=== PATIENT | female | born 1985 | race Caucasian/White ===

== ENCOUNTER 2016-10-31 11:06 | Inpatient (IN) | payer BC, OTHER ==
[~2016-10-31] VITALS: Ht 167.6 cm; Wt 70.8 kg
[2016-10-31] MEDS ORDERED: HYDROMORPHONE 1 MG/1 ML DISP.SYRIN ONE (12:57)
[2016-10-31] MEDS ORDERED: IV SET PRIMARY 1 EA INFUS.SET MC ONE (12:57)
[2016-10-31] MEDS ORDERED: ONDANSETRON HCL/PF 4 MG/2 ML VIAL ONE ×2 (12:57→13:37)
[2016-10-31] MEDS ORDERED: IV NS 0.9% 1,000 ML ONE (12:57)
[2016-10-31] MEDS ORDERED: IV NS 0.9% 1,000 ML BAG IV ONE (13:00)
[2016-10-31] MEDS ORDERED: HYDROMORPHONE INJ 2 MG/ML DISP.SYRIN IV ONE (13:00)
[2016-10-31] MEDS ORDERED: ONDANSETRON HCL/PF 4 MG/2 ML VIAL IVP ONE ×2 (13:00→14:00)
[2016-10-31 13:03] LABS: PREGNANCY TEST URINE QUAL NEGATIVE (NEGATIVE)
[2016-10-31 13:04] LABS: KETONES,URINE Negative (NEGATIVE); LEUKOCYTE ESTERASE ,URINE Trace (NEGATIVE)
[2016-10-31 13:12] LABS: ADD UA MICROSCOPIC YES
[2016-10-31 13:14] LABS: ADD URINE CULTURE YES; RBC,URINE 0-2 /HPF (0-2); WBC,URINE 0-2 /HPF (0-3)
[2016-10-31 13:43] LABS: BASOPHILS # (AUTO) 0.3 /CMM (0.0-0.2); BASOPHILS % (AUTO) 2.9 % (0.0-2.0); DIFF TOTAL % 100 %; EOSINOPHILS # (AUTO) 0.1 /CMM (0.0-0.7); HEMATOCRIT 45 % (33-45); HEMOGLOBIN 15.1 g/dL (11.5-14.8); LYMPHOCYTES # (AUTO) 2.3 /CMM (0.8-4.8); LYMPHOCYTES % (AUTO) 22.6 % (20.0-44.0); MEAN CORPUSCULAR HEMOGLOBIN 28 PG (26.0-33.0); MEAN CORPUSCULAR HGB CONC 33 g/dl (31.0-36.0); MEAN CORPUSCULAR VOLUME 85 fL (82-100); MONOCYTES # (AUTO) 0.5 /CMM (0.1-1.30); MONOCYTES % (AUTO) 4.7 % (2.0-12.0); NEUTROPHILS # (AUTO) 6.9 /CMM (1.8-8.9); NEUTROPHILS % (AUTO) 68.8 % (43.0-81.0); PLATELET COUNT (AUTO) 178 /CMM (150-450); RED BLOOD CELL COUNT(AUTO) 5.36 MIL/uL (4.0-5.2); WHITE BLOOD COUNT (AUTO) 10.1 K/uL (4.3-11.0)
[2016-10-31 13:57] LABS: CALCIUM, SERUM 9.4 mg/dL (8.5-10.1); CREATININE 0.9 mg/dL (0.6-1.3)
[2016-10-31] MEDS ORDERED: methylPREDNISolone SOD SUCC 125 MG/2ML VIAL IV ONE (14:00)
[2016-10-31 14:05] LABS: BILIRUBIN,DIRECT 0.1 mg/dL (0.0-0.2); BILIRUBIN,TOTAL 0.3 mg/dL (0.2-1.0); INDIRECT BILIRUBIN 0.2 mg/dL (0.0-1.1)
[2016-10-31] MEDS ORDERED: methylPREDNISolone SOD SUCC 125 MG/2ML VIAL ONE (14:25)
[2016-10-31] MEDS ORDERED: GABA600T PO (14:43)
[2016-10-31] MEDS ORDERED: QUET200T PO (14:43)
[2016-10-31] MEDS ORDERED: LORA1TAB82 PO (14:43)
[2016-10-31] MEDS ORDERED: QUET25TA PO (14:43)
[2016-10-31] MEDS ORDERED: CLON0.1T PO (14:43)
[2016-10-31] MEDS ORDERED: PRAZ2CAP2 PO (15:37)
[2016-10-31] MEDS ORDERED: FLUOXETINE PO (15:38)
[2016-10-31 16:45] VITALS: BP 116/88
[2016-10-31 17:00] VITALS: BP 123/78
[2016-10-31] MEDS ORDERED: HYDROCODONE/APAP 5/325MG 1 EACH TABLET PO PRN (18:00)
[2016-10-31] MEDS ORDERED: MAGNESIUM HYDROXIDE 30 ML UDC PO PRN (18:00)
[2016-10-31] MEDS ORDERED: Z GUARD REMEDY 2 OZ OINT TP PRN (18:00)
[2016-10-31] MEDS ORDERED: ACETAMINOPHEN 325 MG TABLET PO PRN (18:00)
[2016-10-31] MEDS ORDERED: MAG HYDROX/AL HYDROX/SIMETH 30 ML UDC PO PRN (18:00)
[2016-10-31] MEDS: methylPREDNISolone SOD SUCC 40 MG/ML VIAL IV SCH (18:35)
[2016-10-31] MEDS: MORPHINE SULFATE INJ 2 MG/ML DISP.SYRIN IV PRN (18:36)
[2016-10-31] MEDS: IV D5/0.45 NACL 1,000 ML IV PRN (18:48)
[2016-10-31 20:00] VITALS: BP 108/71
[2016-10-31] MEDS: FLUOXETINE HCL 20 MG CAPSULE PO SCH (21:30)
[2016-10-31] MEDS: QUETIAPINE FUMARATE 25 MG TABLET PO SCH (21:30)
[2016-10-31] MEDS: GABAPENTIN 300 MG CAPSULE PO SCH (21:30)
[2016-10-31] MEDS: METRONIDAZOLE 500MG/ NS 100ML 500 MG in PREMIX 1 EA IV SCH (21:38)
[2016-10-31] MEDS ORDERED: SECONDARY IV SET 1 EA INFUS.SET MC ONE (22:12)
[2016-10-31] MEDS: ZOLPIDEM TARTRATE 5 MG TABLET PO PRN (22:54)
[2016-11-01] MEDS: MORPHINE SULFATE INJ 2 MG/ML DISP.SYRIN IV PRN ×5 (02:09→20:09)
[2016-11-01] MEDS: HYDROCODONE/APAP 10/325MG 1 EA TABLET PO PRN ×5 (03:01→22:07)
[2016-11-01] MEDS: METRONIDAZOLE 500MG/ NS 100ML 500 MG in PREMIX 1 EA IV SCH ×4 (04:14→17:10)
[2016-11-01] MEDS: GABAPENTIN 300 MG CAPSULE PO SCH ×4 (08:29→21:44)
[2016-11-01] MEDS: QUETIAPINE FUMARATE 25 MG TABLET PO SCH ×4 (08:29→21:44)
[2016-11-01] MEDS: LORAZEPAM 1 MG TABLET PO SCH ×3 (08:30→17:04)
[2016-11-01] MEDS: methylPREDNISolone SOD SUCC 40 MG/ML VIAL IV SCH ×3 (08:30→17:03)
[2016-11-01] MEDS ORDERED: methylPREDNISolone SOD SUCC 40 MG/ML VIAL IV SCH (09:00)
[2016-11-01] MEDS ORDERED: PANTOPRAZOLE 40 MG VIAL IV SCH (09:00)
[2016-11-01] MEDS ORDERED: LORAZEPAM INJ 2 MG/ML VIAL IV ONE (12:00)
[2016-11-01 13:11] LABS: BASOPHILS % (AUTO) 0.1 % (0.0-2.0); DIFF TOTAL % 100 %; EOSINOPHILS % (AUTO) 0.1 % (0.0-6.0); HEMATOCRIT 38 % (33-45); HEMOGLOBIN 12.7 g/dL (11.5-14.8); MEAN CORPUSCULAR HEMOGLOBIN 29 PG (26.0-33.0); MEAN CORPUSCULAR HGB CONC 33 g/dl (31.0-36.0); MEAN CORPUSCULAR VOLUME 86 fL (82-100); MONOCYTES # (AUTO) 0.1 /CMM (0.1-1.30); MONOCYTES % (AUTO) 0.5 % (2.0-12.0); NEUTROPHILS # (AUTO) 9.9 /CMM (1.8-8.9); NEUTROPHILS % (AUTO) 90.3 % (43.0-81.0); PLATELET COUNT (AUTO) 163 /CMM (150-450); RED BLOOD CELL COUNT(AUTO) 4.45 MIL/uL (4.0-5.2)
[2016-11-01 13:21] LABS: CALCIUM, SERUM 8.5 mg/dL (8.5-10.1); CREATININE 0.9 mg/dL (0.6-1.3); PHOSPHORUS 2.4 mg/dL (2.5-4.9)
[2016-11-01 13:35] LABS: THYROID STIMULATING HORMONE 0.422 uIU/mL (0.358-3.74)
[2016-11-01] MEDS: IV D5/0.45 NACL 1,000 ML IV PRN (14:43)
[2016-11-01] MEDS ORDERED: K PHOS NEUTRAL 250 MG TABLET PO ONE (16:00)
[2016-11-01] MEDS: ONDANSETRON HCL/PF 4 MG/2 ML VIAL IVP PRN (17:07)
[2016-11-01] MEDS ORDERED: PEG 3350/NA SULF,BICARB,CL/KCL 4,000 ML BOTTLE PO ONE (18:00)
[2016-11-01 20:52] VITALS: BP 131/89
[2016-11-01] MEDS: FLUOXETINE HCL 20 MG CAPSULE PO SCH (21:44)
[2016-11-01] MEDS: ZOLPIDEM TARTRATE 5 MG TABLET PO PRN (23:15)
[2016-11-02] MEDS: IV D5/0.45 NACL 1,000 ML IV PRN
[2016-11-02] MEDS: MORPHINE SULFATE INJ 2 MG/ML DISP.SYRIN IV PRN ×4 (03:14→11:53)
[2016-11-02] MEDS: METRONIDAZOLE 500MG/ NS 100ML 500 MG in PREMIX 1 EA IV SCH ×3 (05:12)
[2016-11-02 07:56] LABS: BASOPHILS # (AUTO) 0.1 /CMM (0.0-0.2); BASOPHILS % (AUTO) 0.9 % (0.0-2.0); DIFF TOTAL % 100 %; EOSINOPHILS # (AUTO) 0.1 /CMM (0.0-0.7); EOSINOPHILS % (AUTO) 0.5 % (0.0-6.0); HEMATOCRIT 38 % (33-45); HEMOGLOBIN 12.4 g/dL (11.5-14.8); LYMPHOCYTES # (AUTO) 3.4 /CMM (0.8-4.8); LYMPHOCYTES % (AUTO) 26.7 % (20.0-44.0); MEAN CORPUSCULAR HEMOGLOBIN 29 PG (26.0-33.0); MEAN CORPUSCULAR HGB CONC 33 g/dl (31.0-36.0); MEAN CORPUSCULAR VOLUME 86 fL (82-100); MONOCYTES # (AUTO) 0.7 /CMM (0.1-1.30); MONOCYTES % (AUTO) 5.4 % (2.0-12.0); NEUTROPHILS # (AUTO) 8.5 /CMM (1.8-8.9); NEUTROPHILS % (AUTO) 66.5 % (43.0-81.0); PLATELET COUNT (AUTO) 177 /CMM (150-450); RED BLOOD CELL COUNT(AUTO) 4.34 MIL/uL (4.0-5.2); WHITE BLOOD COUNT (AUTO) 12.8 K/uL (4.3-11.0)
[2016-11-02 08:00] VITALS: BP 126/88
[2016-11-02 08:36] LABS: ALBUMIN 3.6 g/dL (3.4-5.0); BILIRUBIN,TOTAL 0.2 mg/dL (0.2-1.0); CALCIUM, SERUM 8.3 mg/dL (8.5-10.1); CREATININE 0.8 mg/dL (0.6-1.3); PHOSPHORUS 2.8 mg/dL (2.5-4.9); POTASSIUM 3.4 mmol/L (3.5-5.1); TOTAL PROTEIN, SERUM 5.9 g/dL (6.4-8.2)
[2016-11-02] MEDS: GABAPENTIN 300 MG CAPSULE PO SCH ×2 (08:38→11:24)
[2016-11-02] MEDS: LORAZEPAM 1 MG TABLET PO SCH ×2 (08:38→11:25)
[2016-11-02] MEDS: QUETIAPINE FUMARATE 25 MG TABLET PO SCH ×2 (08:38→11:25)
[2016-11-02] MEDS: methylPREDNISolone SOD SUCC 40 MG/ML VIAL IV SCH (09:17)
[2016-11-02] MEDS: ONDANSETRON HCL/PF 4 MG/2 ML VIAL IVP PRN ×2 (09:53→16:43)
[2016-11-02] MEDS ORDERED: POTASSIUM CHLORIDE 20 MEQ TAB.PRT.SR PO SCH (10:30)
[2016-11-02] MEDS ORDERED: SECONDARY IV SET 1 EA INFUS.SET MC ONE (11:15)
[2016-11-02] MEDS: Magnesium 1GM/D5W 100ML PREMIX 100 ML IV SCH ×2 (11:24→12:07)
[2016-11-02] MEDS: HYDROCODONE/APAP 10/325MG 1 EA TABLET PO PRN (15:11)
[2016-11-02 16:00] VITALS: BP 120/81
[2016-11-02] MEDS ORDERED: HYDROCORTISONE 100 MG/60 ML ENEMA RC SCH (22:00)
== END 2016-11-02 16:45 | disposition home or self-care (01) | DRG 394 ==
LOC: ER 11:08 → MEDSG2 16:33
PROVIDERS: ADMIT Internal Medicine; ATTEND Internal Medicine
PROC: 05H533Z Insertion of Infusion Device into Right Subclavian Vein, Percutaneous Approach (ICD-10-PCS; 2016-11-01)
PROC: 0DBP8ZX Excision of Rectum, Via Natural or Artificial Opening Endoscopic, Diagnostic (ICD-10-PCS; principal; 2016-11-02 10:27)
DX: K62.89 Other specified diseases of anus and rectum (principal); E87.0 Hyperosmolality and hypernatremia; F32.9 Major depressive disorder, single episode, unspecified; F41.9 Anxiety disorder, unspecified; K58.9 Irritable bowel syndrome, unspecified; M19.90 Unspecified osteoarthritis, unspecified site; Z87.442 Personal history of urinary calculi; Z90.49 Acquired absence of other specified parts of digestive tract
CPT/HCPCS: 36415; 80048-TC; 80053-TC; 80061-TC; 80076-TC; 81000-TC; 83690-TC; 83735-TC; 84100-TC; 84443-TC; 84703-TC; 85025-TC; 87086-TC; 88305-TC; A4216; A4606; C9113; J1170; J2060; J2270; J2405; J2920; J2930; J3475; J3490; J7030; Z7610

== ENCOUNTER 2016-11-24 10:03 | Emergency (ER) | payer BC ==
[~2016-11-24] VITALS: Ht 162.6 cm; Wt 63.5 kg
[~2016-11-24 10:03] MED LIST: CLON0.1T PO; FLUOXETINE PO; GABA600T PO; LORA1TAB82 PO; PRAZ2CAP2 PO; QUET200T PO; QUET25TA PO
[2016-11-24 10:09] VITALS: BP 126/71
[2016-11-24] MEDS ORDERED: LIDOCAINE 1%-EPI 1:100,000 20 ML VIAL TP ONE (10:30)
== END 2016-11-24 11:41 | disposition home or self-care (01) ==
LOC: ER 10:05
DX: L02.411 Cutaneous abscess of right axilla (principal); F19.10 Other psychoactive substance abuse, uncomplicated; F17.210 Nicotine dependence, cigarettes, uncomplicated; Z88.8 Allergy status to other drugs, medicaments and biological substances
CPT/HCPCS: 10060; 99283; A4606; Z7610

== ENCOUNTER 2016-11-26 16:52 | Emergency (ER) | payer BC ==
[~2016-11-26] VITALS: Ht 165.1 cm; Wt 63.5 kg
[2016-11-26] MEDS ORDERED: ONDANSETRON HCL/PF 4 MG/2 ML VIAL IV ONE (17:30)
[2016-11-26] MEDS ORDERED: IV NS 0.9% 1,000 ML BAG IV ONE ×2 (17:30)
[2016-11-26] MEDS ORDERED: MORPHINE SULFATE INJ 2 MG/ML DISP.SYRIN IV ONE (17:30)
[2016-11-26] MEDS ORDERED: IV NS 0.9% 2,000 ML ONE (17:37)
[2016-11-26] MEDS ORDERED: ONDANSETRON HCL/PF 4 MG/2 ML VIAL ONE (17:37)
[2016-11-26] MEDS ORDERED: MORPHINE SULFATE INJ 4 MG/ML DISP.SYRIN ONE (17:37)
[2016-11-26] MEDS ORDERED: IV SET PRIMARY 1 EA INFUS.SET MC ONE (17:37)
[2016-11-26 17:57] LABS: BASOPHILS # (AUTO) 0.3 /CMM (0.0-0.2); BASOPHILS % (AUTO) 2.3 % (0.0-2.0); DIFF TOTAL % 100 %; EOSINOPHILS % (AUTO) 0.4 % (0.0-6.0); HEMATOCRIT 42 % (33-45); HEMOGLOBIN 13.9 g/dL (11.5-14.8); LYMPHOCYTES # (AUTO) 1.4 /CMM (0.8-4.8); LYMPHOCYTES % (AUTO) 11.8 % (20.0-44.0); MEAN CORPUSCULAR HEMOGLOBIN 29 PG (26.0-33.0); MEAN CORPUSCULAR HGB CONC 33 g/dl (31.0-36.0); MEAN CORPUSCULAR VOLUME 86 fL (82-100); MONOCYTES # (AUTO) 0.8 /CMM (0.1-1.30); MONOCYTES % (AUTO) 6.5 % (2.0-12.0); NEUTROPHILS # (AUTO) 9.2 /CMM (1.8-8.9); PLATELET COUNT (AUTO) 196 /CMM (150-450); RED BLOOD CELL COUNT(AUTO) 4.85 MIL/uL (4.0-5.2); WHITE BLOOD COUNT (AUTO) 11.7 K/uL (4.3-11.0)
[2016-11-26 19:00] LABS: CALCIUM, SERUM 8.4 mg/dL (8.5-10.1); CREATININE 1.3 mg/dL (0.6-1.3); POTASSIUM 3.2 mmol/L (3.5-5.1)
[2016-11-26] MEDS ORDERED: diphenhydrAMINE HCL 25 MG CAPSULE ONE (19:05)
[2016-11-26 19:06] LABS: ALBUMIN 3.6 g/dL (3.4-5.0); BILIRUBIN,DIRECT 0.1 mg/dL (0.0-0.2); BILIRUBIN,TOTAL 0.4 mg/dL (0.2-1.0); INDIRECT BILIRUBIN 0.3 mg/dL (0.0-1.1); TOTAL PROTEIN, SERUM 6.4 g/dL (6.4-8.2)
[2016-11-26 19:13] LABS: KETONES,URINE 15 (NEGATIVE); LEUKOCYTE ESTERASE ,URINE Small (NEGATIVE)
[2016-11-26 19:14] LABS: ADD UA MICROSCOPIC YES
[2016-11-26 19:17] LABS: ADD URINE CULTURE YES; RBC,URINE 21-50 /HPF (0-2); WBC,URINE 81-100 /HPF (0-3)
[2016-11-26 19:23] LABS: CANNABINOID, URINE NEGATIVE (NEGATIVE); PHENCYCLIDINE SCREEN,URINE NEGATIVE (NEGATIVE)
[2016-11-26] MEDS ORDERED: diphenhydrAMINE HCL 50 MG/ML VIAL IV ONE (19:30)
[2016-11-26] MEDS ORDERED: diphenhydrAMINE HCL 25 MG CAPSULE PO ONE (19:30)
[2016-11-26] MEDS ORDERED: POTASSIUM CHLORIDE 20 MEQ TAB.PRT.SR PO ONE ×2 (21:00→21:06)
[2016-11-26 21:18] VITALS: BP 114/64
== END 2016-11-26 21:19 | disposition home or self-care (01) ==
LOC: ER 16:55 → UNDOADMIN 20:13 → MED 20:13 → ER 21:19
DX: N30.00 Acute cystitis without hematuria (principal); E86.0 Dehydration; E87.6 Hypokalemia; R79.89 Other specified abnormal findings of blood chemistry; F19.10 Other psychoactive substance abuse, uncomplicated; F17.210 Nicotine dependence, cigarettes, uncomplicated; F41.9 Anxiety disorder, unspecified; G40.909 Epilepsy, unspecified, not intractable, without status epilepticus; Z88.8 Allergy status to other drugs, medicaments and biological substances; Z90.49 Acquired absence of other specified parts of digestive tract; Z90.89 Acquired absence of other organs
CPT/HCPCS: 36415; 80048; 80076; 80305; 81001; 83690; 84703; 85025; 87086; 96361; 96374; 96375; 99284; A4606; G0480; J2270; J2405; J7030; Q0163; 81000-TC; 87186-TC; Z7610

== ENCOUNTER 2016-11-30 00:53 | Emergency (ER) | payer BC ==
[~2016-11-30] VITALS: Ht 162.6 cm; Wt 68.0 kg
[2016-11-30] MEDS ORDERED: ONDANSETRON HCL/PF 4 MG/2 ML VIAL ONE ×2 (01:50→02:13)
[2016-11-30] MEDS ORDERED: IV SET PRIMARY PUMP SET 1 EA INFUS.SET MC ONE (01:56)
[2016-11-30] MEDS ORDERED: IV NS 0.9% 1,000 ML ONE (01:56)
[2016-11-30] MEDS ORDERED: CEFTRIAXONE 500 MG VIAL IM ONE (02:00)
[2016-11-30] MEDS ORDERED: ONDANSETRON HCL/PF 4 MG/2 ML VIAL IM ONE ×2 (02:00→03:00)
[2016-11-30] MEDS ORDERED: SULFAMETH/TRIMETH 800/160 MG 1 UDTAB TABLET PO ONE (02:00)
[2016-11-30] MEDS ORDERED: IV NS 0.9% 1,000 ML BAG IV ONE (02:00)
[2016-11-30] MEDS ORDERED: LORAZEPAM INJ 2 MG/ML VIAL ONE (02:34)
[2016-11-30] MEDS ORDERED: LORAZEPAM INJ 2 MG/ML VIAL IM ONE (03:00)
[2016-11-30] MEDS ORDERED: HALOPERIDOL LACTATE INJ 5 MG/ML VIAL IM ONE (05:30)
[2016-11-30] MEDS ORDERED: CEFTRIAXONE 500 MG VIAL ONE (05:46)
[2016-11-30 05:59] VITALS: BP 128/91
[2016-11-30] MEDS ORDERED: ONDA-25 PO (19:27)
[2016-11-30] MEDS ORDERED: TRAM50TA2 PO (19:27)
[2016-11-30] MEDS ORDERED: TRAZ-144 PO (19:27)
== END 2016-11-30 06:02 | disposition home or self-care (01) ==
LOC: ER 00:56
DX: N30.90 Cystitis, unspecified without hematuria (principal); Z91.14 Patient's other noncompliance with medication regimen; F19.10 Other psychoactive substance abuse, uncomplicated; K50.90 Crohn's disease, unspecified, without complications; F17.200 Nicotine dependence, unspecified, uncomplicated; Z90.89 Acquired absence of other organs; Z90.49 Acquired absence of other specified parts of digestive tract; Z88.8 Allergy status to other drugs, medicaments and biological substances
CPT/HCPCS: 96372 ×4; 99284; A4606; J0696; J2060; J2405 ×2; J7030; Z7610

== ENCOUNTER 2016-11-30 14:56 | Inpatient (IN) | payer BC ==
[~2016-11-30] VITALS: Ht 160 cm; Wt 65.8 kg
[2016-11-30] MEDS ORDERED: ONDANSETRON HCL/PF 4 MG/2 ML VIAL IVP ONE (16:00)
[2016-11-30] MEDS ORDERED: IV NS 0.9% 1,000 ML BAG IV ONE ×3 (16:00→21:00)
[2016-11-30] MEDS ORDERED: ONDANSETRON HCL/PF 4 MG/2 ML VIAL ONE (16:05)
[2016-11-30] MEDS ORDERED: IV NS 0.9% 1,000 ML ONE ×2 (16:05→23:36)
[2016-11-30] MEDS ORDERED: IV SET PRIMARY PUMP SET 1 EA INFUS.SET MC ONE ×5 (16:06→23:37)
[2016-11-30 16:52] LABS: BASOPHILS # (AUTO) 0.5 /CMM (0.0-0.2); BASOPHILS % (AUTO) 2.1 % (0.0-2.0); DIFF TOTAL % 100 %; EOSINOPHILS # (AUTO) 0.2 /CMM (0.0-0.7); EOSINOPHILS % (AUTO) 0.6 % (0.0-6.0); HEMATOCRIT 45 % (33-45); HEMOGLOBIN 15.2 g/dL (11.5-14.8); LYMPHOCYTES # (AUTO) 1.3 /CMM (0.8-4.8); LYMPHOCYTES % (AUTO) 4.8 % (20.0-44.0); MEAN CORPUSCULAR HEMOGLOBIN 29 PG (26.0-33.0); MEAN CORPUSCULAR HGB CONC 34 g/dl (31.0-36.0); MEAN CORPUSCULAR VOLUME 85 fL (82-100); MONOCYTES # (AUTO) 1.4 /CMM (0.1-1.30); MONOCYTES % (AUTO) 5.3 % (2.0-12.0); NEUTROPHILS # (AUTO) 22.7 /CMM (1.8-8.9); NEUTROPHILS % (AUTO) 87.2 % (43.0-81.0); PLATELET COUNT (AUTO) 263 /CMM (150-450); RED BLOOD CELL COUNT(AUTO) 5.28 MIL/uL (4.0-5.2); WHITE BLOOD COUNT (AUTO) 26.1 K/uL (4.3-11.0)
[2016-11-30] MEDS ORDERED: LORAZEPAM INJ 2 MG/ML VIAL ONE (16:57)
[2016-11-30] MEDS ORDERED: HYDROMORPHONE INJ 2 MG/ML DISP.SYRIN ONE (16:57)
[2016-11-30 17:00] LABS: CALCIUM, SERUM 9.7 mg/dL (8.5-10.1); CREATININE 1.1 mg/dL (0.6-1.3)
[2016-11-30] MEDS ORDERED: HYDROMORPHONE INJ 2 MG/ML DISP.SYRIN IV ONE (17:00)
[2016-11-30] MEDS ORDERED: LORAZEPAM INJ 2 MG/ML VIAL IV ONE (17:00)
[2016-11-30 17:04] LABS: POTASSIUM 2.8 mmol/L (3.5-5.1)
[2016-11-30 17:06] LABS: ALBUMIN 3.8 g/dL (3.4-5.0); BILIRUBIN,DIRECT 0.1 mg/dL (0.0-0.2); BILIRUBIN,TOTAL 0.4 mg/dL (0.2-1.0); INDIRECT BILIRUBIN 0.3 mg/dL (0.0-1.1); TOTAL PROTEIN, SERUM 7.6 g/dL (6.4-8.2)
[2016-11-30 17:25] LABS: KETONES,URINE 80 (NEGATIVE); LEUKOCYTE ESTERASE ,URINE Negative (NEGATIVE)
[2016-11-30 17:28] LABS: ADD UA MICROSCOPIC YES
[2016-11-30 17:32] LABS: CANNABINOID, URINE NEGATIVE (NEGATIVE); PHENCYCLIDINE SCREEN,URINE NEGATIVE (NEGATIVE)
[2016-11-30 17:41] LABS: ADD URINE CULTURE YES; WBC,URINE 0-2 /HPF (0-3)
[2016-11-30] MEDS ORDERED: IV NS 0.9% 250 ML IV ONE (17:41)
[2016-11-30] MEDS ORDERED: CT SWABBABLE VALVE TRANS SET 1 EA INFUS.SET MC ONE (17:42)
[2016-11-30] MEDS ORDERED: IOHEXOL-300 100 ML VIAL IV ONE (17:42)
[2016-11-30 17:52] LABS: BAND % (MANUAL) 4 % (0.0-5.0); LYMPHOCYTES % (MANUAL) 6 % (16-48); PLATELET ESTIMATE ADEQUATE
[2016-11-30 17:53] LABS: RBC MORPHOLOGY COMMENT NORMAL RBC MORPH
[2016-11-30] MEDS ORDERED: POTASSIUM CHLORIDE 20 MEQ TAB.PRT.SR PO ONE ×2 (18:30→19:42)
[2016-11-30] MEDS ORDERED: Magnesium 1 GM/2 ML VIAL IV ONE (18:30)
[2016-11-30] MEDS ORDERED: POTASSIUM CL. PREMIX PERIPHER. 50 ML IV SCH (18:30)
[2016-11-30] MEDS ORDERED: Magnesium 1GM/D5W 100ML PREMIX 200 ML IV ONE (18:33)
[2016-11-30] MEDS ORDERED: ONDA-25 PO (19:27)
[2016-11-30] MEDS ORDERED: TRAM50TA2 PO (19:27)
[2016-11-30] MEDS ORDERED: TRAZ-144 PO (19:27)
[2016-11-30] MEDS ORDERED: VANCOMYCIN 1 GM in IV D5W 250 ML IV ONE ×2 (19:30→21:00)
[2016-11-30] MEDS ORDERED: PIPERACILLIN /TAZOBACTAM 3.375 G in IV D5W 50 ML IV ONE (19:30)
[2016-11-30] MEDS ORDERED: POTASSIUM CL. PREMIX PERIPHER. 50 ML ONE (19:42)
[2016-11-30] MEDS ORDERED: IV NS 0.9% 2,000 ML ONE (19:42)
[2016-11-30] MEDS ORDERED: LORAZEPAM INJ 2 MG/ML VIAL IVP PRN (21:00)
[2016-11-30] MEDS ORDERED: ACETAMINOPHEN 325 MG TABLET PO PRN (21:00)
[2016-11-30] MEDS ORDERED: POTASSIUM CL. PREMIX PERIPHER. 150 ML ONE (22:00)
[2016-11-30 22:30] VITALS: BP 130/94
[2016-11-30] MEDS ORDERED: CLONIDINE HCL 0.1 MG TABLET PO PRN (23:30)
[2016-11-30] MEDS ORDERED: TRAMADOL HCL 50 MG TABLET PO PRN (23:30)
[2016-11-30] MEDS: POTASSIUM CL. PREMIX PERIPHER. 50 ML IV SCH (23:31)
[2016-11-30] MEDS ORDERED: SECONDARY IV SET 1 EA INFUS.SET MC ONE (23:44)
[2016-12-01] MEDS ORDERED: IV D5W 50 ML IV ONE ×2 (00:27→06:32)
[2016-12-01] MEDS ORDERED: SECONDARY IV SET 1 EA INFUS.SET MC ONE ×2 (00:27→11:12)
[2016-12-01] MEDS: PIPERACILLIN /TAZOBACTAM 3.375 G in IV D5W 50 ML IV SCH ×5 (00:31→23:03)
[2016-12-01] MEDS: POTASSIUM CL. PREMIX PERIPHER. 50 ML IV SCH ×2 (01:45→02:21)
[2016-12-01] MEDS ORDERED: TRAMADOL HCL 50 MG TABLET ONE (03:28)
[2016-12-01 04:00] VITALS: BP 134/80
[2016-12-01 06:30] VITALS: BP 135/85
[2016-12-01] MEDS ORDERED: PIPERACILLIN /TAZOBACTAM 3.375 G VIAL IV ONE (06:31)
[2016-12-01 06:39] LABS: INR 1.02 (0.87-1.13)
[2016-12-01 06:50] LABS: BASOPHILS % (AUTO) 0.1 % (0.0-2.0); DIFF TOTAL % 100 %; EOSINOPHILS % (AUTO) 0.2 % (0.0-6.0); HEMATOCRIT 41 % (33-45); HEMOGLOBIN 13.4 g/dL (11.5-14.8); LYMPHOCYTES # (AUTO) 1.4 /CMM (0.8-4.8); LYMPHOCYTES % (AUTO) 6.6 % (20.0-44.0); MEAN CORPUSCULAR HEMOGLOBIN 28 PG (26.0-33.0); MEAN CORPUSCULAR HGB CONC 32 g/dl (31.0-36.0); MEAN CORPUSCULAR VOLUME 87 fL (82-100); MONOCYTES # (AUTO) 1.6 /CMM (0.1-1.30); MONOCYTES % (AUTO) 7.8 % (2.0-12.0); NEUTROPHILS # (AUTO) 17.5 /CMM (1.8-8.9); NEUTROPHILS % (AUTO) 85.3 % (43.0-81.0); PLATELET COUNT (AUTO) 268 /CMM (150-450); RED BLOOD CELL COUNT(AUTO) 4.74 MIL/uL (4.0-5.2); WHITE BLOOD COUNT (AUTO) 20.5 K/uL (4.3-11.0)
[2016-12-01 07:14] LABS: ALBUMIN 3.3 g/dL (3.4-5.0); BILIRUBIN,TOTAL 0.3 mg/dL (0.2-1.0); CALCIUM, SERUM 8.7 mg/dL (8.5-10.1); CREATININE 0.9 mg/dL (0.6-1.3); TOTAL PROTEIN, SERUM 6.7 g/dL (6.4-8.2)
[2016-12-01 07:30] LABS: CREATINE KINASE MB 1.1 ng/mL (0-3.6)
[2016-12-01 08:00] VITALS: BP_SYST 146; BP_SYST 148; BP_DIAS 101
[2016-12-01] MEDS: PANTOPRAZOLE 40 MG VIAL IV SCH (08:07)
[2016-12-01] MEDS: QUETIAPINE FUMARATE 25 MG TABLET PO SCH (08:08)
[2016-12-01] MEDS: TRAMADOL HCL 50 MG TABLET PO PRN ×2 (08:08→12:27)
[2016-12-01] MEDS: GABAPENTIN 300 MG CAPSULE PO SCH ×4 (08:08→21:30)
[2016-12-01] MEDS ORDERED: FEE PK DOSING 1 MIN EA MC ONE ×2 (08:09→13:29)
[2016-12-01] MEDS: ONDANSETRON HCL/PF 4 MG/2 ML VIAL IVP PRN ×3 (08:13→20:04)
[2016-12-01] MEDS: NICOTINE PATCH (21MG) 21 MG PATCH.TD24 TD SCH (08:18)
[2016-12-01] MEDS ORDERED: VANCOMYCIN 0.75 GM in IV D5W 250 ML IV SCH (09:00)
[2016-12-01] MEDS: VANCOMYCIN 0.75 GM in IV D5W 250 ML IV SCH ×2 (11:21→20:09)
[2016-12-01] MEDS: LORAZEPAM 1 MG TABLET PO PRN ×2 (12:30→21:30)
[2016-12-01] MEDS ORDERED: QUETIAPINE FUMARATE 25 MG TABLET PO PRN (14:00)
[2016-12-01 16:00] VITALS: BP 131/77
[2016-12-01] MEDS ORDERED: IV NS 0.9% 250 ML IV ONE (17:24)
[2016-12-01] MEDS: HYDROMORPHONE INJ 2 MG/ML DISP.SYRIN IV PRN ×2 (17:28→21:29)
[2016-12-01 20:00] VITALS: BP_SYST 110; BP_SYST 113; BP_DIAS 72; BP_DIAS 78
[2016-12-01] MEDS ORDERED: QUETIAPINE FUMARATE 25 MG TABLET PO SCH (22:00)
[2016-12-01] MEDS ORDERED: TRAZODONE 50 MG TABLET PO SCH (22:00)
[2016-12-02] MEDS: VANCOMYCIN 0.75 GM in IV D5W 250 ML IV SCH ×3 (02:43→18:41)
[2016-12-02] MEDS: HYDROMORPHONE INJ 2 MG/ML DISP.SYRIN IV PRN ×5 (04:13→20:40)
[2016-12-02] MEDS: PIPERACILLIN /TAZOBACTAM 3.375 G in IV D5W 50 ML IV SCH ×3 (05:00→17:42)
[2016-12-02 08:00] VITALS: BP 127/97
[2016-12-02 08:01] LABS: CALCIUM, SERUM 8.9 mg/dL (8.5-10.1); CREATININE 1.1 mg/dL (0.6-1.3); POTASSIUM 3.5 mmol/L (3.5-5.1)
[2016-12-02] MEDS: QUETIAPINE FUMARATE 25 MG TABLET PO SCH ×2 (08:41→16:35)
[2016-12-02] MEDS: NICOTINE PATCH (21MG) 21 MG PATCH.TD24 TD SCH (08:41)
[2016-12-02] MEDS: ONDANSETRON HCL/PF 4 MG/2 ML VIAL IVP PRN (08:41)
[2016-12-02] MEDS: GABAPENTIN 300 MG CAPSULE PO SCH ×4 (08:42→22:10)
[2016-12-02] MEDS: LORAZEPAM 1 MG TABLET PO PRN ×2 (08:53→20:39)
[2016-12-02] MEDS: PANTOPRAZOLE 40 MG VIAL IV SCH (08:57)
[2016-12-02] MEDS ORDERED: IV NS 0.9% 250 ML IV ONE (11:25)
[2016-12-02 16:00] VITALS: BP 142/96
[2016-12-02] MEDS: LACTOBACILLUS RHAMNOSUS GG 1 EACH CAP.SPRINK PO SCH (16:34)
[2016-12-02] MEDS: PROMETHAZINE HCL 50 MG/ML AMPUL IM PRN (18:41)
[2016-12-02 20:08] VITALS: BP 110/80
[2016-12-02] MEDS: MUPIROCIN OINT 2% 22 GM TUBE SCH (21:00)
[2016-12-02] MEDS ORDERED: QUETIAPINE FUMARATE 25 MG TABLET PO SCH (22:00)
[2016-12-03] MEDS: PIPERACILLIN /TAZOBACTAM 3.375 G in IV D5W 50 ML IV SCH ×3 (00:37→11:24)
[2016-12-03] MEDS: HYDROMORPHONE INJ 2 MG/ML DISP.SYRIN IV PRN ×3 (00:42→11:22)
[2016-12-03] MEDS: PROMETHAZINE HCL 50 MG/ML AMPUL IM PRN ×2 (03:10→11:56)
[2016-12-03] MEDS: VANCOMYCIN 0.75 GM in IV D5W 250 ML IV SCH ×2 (03:10→10:48)
[2016-12-03] MEDS: TRAMADOL HCL 50 MG TABLET PO PRN (03:16)
[2016-12-03] MEDS: LORAZEPAM 1 MG TABLET PO PRN (06:17)
[2016-12-03] MEDS: ONDANSETRON HCL/PF 4 MG/2 ML VIAL IVP PRN (06:17)
[2016-12-03 06:20] LABS: CALCIUM, SERUM 8.3 mg/dL (8.5-10.1); CREATININE 0.8 mg/dL (0.6-1.3); POTASSIUM 3.4 mmol/L (3.5-5.1)
[2016-12-03 08:00] VITALS: BP 142/84
[2016-12-03] MEDS: PANTOPRAZOLE 40 MG VIAL IV SCH (08:27)
[2016-12-03] MEDS: NICOTINE PATCH (21MG) 21 MG PATCH.TD24 TD SCH (08:27)
[2016-12-03] MEDS: LACTOBACILLUS RHAMNOSUS GG 1 EACH CAP.SPRINK PO SCH ×2 (08:28→16:52)
[2016-12-03] MEDS: QUETIAPINE FUMARATE 25 MG TABLET PO SCH ×2 (08:28→16:52)
[2016-12-03] MEDS: GABAPENTIN 300 MG CAPSULE PO SCH ×3 (08:29→16:52)
[2016-12-03] MEDS: MUPIROCIN OINT 2% 22 GM TUBE SCH (08:35)
[2016-12-03] MEDS ORDERED: POTASSIUM CHLORIDE 20 MEQ TAB.PRT.SR PO ONE (11:30)
[2016-12-03] MEDS ORDERED: SULF1TAB48 PO (14:16)
[2016-12-03] MEDS ORDERED: RIFA300C4 PO (14:16)
[2016-12-03 16:00] VITALS: BP 112/76
[2016-12-03] MEDS ORDERED: PRAZOSIN HCL 1 MG CAPSULE PO SCH (22:00)
[2016-12-03] MEDS ORDERED: QUETIAPINE FUMARATE 25 MG TABLET PO SCH (22:00)
== END 2016-12-03 17:30 | DRG 871 ==
LOC: ER 14:58 → TELE 21:48 → MED 12-01 09:29 → MEDSG2 12-02 22:43
PROVIDERS: ADMIT Internal Medicine; ATTEND Internal Medicine
PROC: 05H633Z Insertion of Infusion Device into Left Subclavian Vein, Percutaneous Approach (ICD-10-PCS; principal; 2016-11-30)
PROC: B547ZZA Ultrasonography of Left Subclavian Vein, Guidance (ICD-10-PCS; 2016-11-30)
DX: A41.9 Sepsis, unspecified organism (principal); N17.0 Acute kidney failure with tubular necrosis; L03.113 Cellulitis of right upper limb; F11.23 Opioid dependence with withdrawal; K50.90 Crohn's disease, unspecified, without complications; Z87.442 Personal history of urinary calculi; Z91.19 Patient's noncompliance with other medical treatment and regimen; E83.51 Hypocalcemia; E86.0 Dehydration; E87.6 Hypokalemia; E88.09 Other disorders of plasma-protein metabolism, not elsewhere classified; F17.200 Nicotine dependence, unspecified, uncomplicated; F19.10 Other psychoactive substance abuse, uncomplicated; F41.9 Anxiety disorder, unspecified; Z22.322 Carrier or suspected carrier of Methicillin resistant Staphylococcus aureus; F31.9 Bipolar disorder, unspecified; T14.8 Other injury of unspecified body region; X58.XXXA Exposure to other specified factors, initial encounter; Y93.9 Activity, unspecified; Y92.009 Unspecified place in unspecified non-institutional (private) residence as the place of occurrence of the external cause; G89.29 Other chronic pain; R65.20 Severe sepsis without septic shock
CPT/HCPCS: 36415; 36569; 71010-TC; 80048-TC; 80053-TC; 80076-TC; 80202-TC; 80305; 81000-TC; 82553-TC; 83605-TC; 84703-TC; 85025-TC; 85610-TC; 85730-TC; 87040-TC; 87081-TC; 87086-TC; 93307-TC; A4606; A6402; C1751; C9113; J1170; J2060; J2405; J2543; J2550; J3370; J3475; J3480; J7030; J7050; J7060; Q9967; Z7610